=== PATIENT | male | born 1965 | race Caucasian/White ===

== ENCOUNTER → 2017-07-27 | Outpatient (CLI) | payer OTHER ==
--- NOTE | 2017-07-27 15:43 | DIAGNOSTIC IMAGING REPORT ---
[facility] RADIOGRAPHS 3 VIEWS HISTORY: pre-MRI screening. COMPARISON: None. FINDINGS: There are no radiopaque foreign bodies identified within the orbits. IMPRESSION: No radiopaque foreign bodies identified within the orbits. Electronically signed by: Tommie Loza M.D. 07/27/2017 3:41 PM Dictated Date/Time: 07/27/2017 3:41 PM
--- NOTE | 2017-07-27 16:42 | DIAGNOSTIC IMAGING REPORT ---
MRI LEFT KNEE NO CONTRAST CLINICAL HISTORY: Medial left knee pain. Suspected meniscal tear. COMPARISON STUDY: Conventional radiographic study dated 07/26/2017 FINDINGS: Imaging was performed in the axial, sagittal, and coronal planes. There are no areas of marrow edema to indicate occult fracture or bone bruise. The quadriceps and patellar tendons appear intact. The anterior and posterior cruciate ligaments appear intact. The medial and lateral collateral ligaments appear intact. The patellar retinacular structures appear intact. No tears of the lateral meniscus are visualized. There is a complex horizontal tear involving the posterior horn the medial meniscus. There is a very small popliteal cyst. There is a 24 x 14 x 6 mm multiloculated cystic lesion involving the posterior aspect of the medial femoral condyle. This has a well-defined margin and appears nonaggressive. IMPRESSION: 1. Complex horizontal tear involving the posterior horn the medial meniscus. 2. 24 x 14 x 6 mm multiloculated cystic lesion involving the subcortical aspect of the posterior medial femoral condyle. This has a well-defined margin and appears nonaggressive on MRI scanning Electronically signed by: Delmar Watkins M.D. 07/27/2017 4:40 PM Dictated Date/Time: 07/27/2017 4:36 PM
== END | disposition home or self-care (01) ==
LOC: C.MRIBC 15:04
PROVIDERS: ATTEND Orthopaedic Surgery Sports Medicine
DX: S83.232A Complex tear of medial meniscus, current injury, left knee, initial encounter (principal); X58.XXXA Exposure to other specified factors, initial encounter; M25.862 Other specified joint disorders, left knee